=== PATIENT | female | born 1950 | race Caucasian/White ===

== ENCOUNTER 2017-12-18 08:21 | Day surgery (SDC) | payer MEDICARE, OTHER, SELFPAY ==
[2017-11-25 09:01] VITALS: BMI 36.7
[2017-12-18] VITALS (13 sets, daily range): BP systolic 94–140; BP diastolic 55–88; PULSE 60–79; RESP 10–20; TEMP 35.7–36.3; O2SAT 91–97; BMI 36.7
--- NOTE | 2017-12-18 09:11 | SUR.OPER ---
Supine on padded OR bed. Pillow under head, arms secured on padded armboards <90 degree abduction. Safety belt across torso. Non-operative leg secured with tape over blanket over lower leg. Operative leg secured in Eulogio positioner. Foam padded brace at thigh of operative leg.
[2017-12-18] MEDS: VANCOMYCIN 1,000 MG/200 ML FROZ.PIGGY 133.333 MG IV (09:45)
[2017-12-18] MEDS: LACTATED RINGERS 1,000 ML 42 ML IV ×2 (10:14→13:31)
[2017-12-18] MEDS: CEFAZOLIN 2 GM/100 ML FROZ.PIGGY IV ×2 (11:14→17:29)
[2017-12-18] MEDS: POVIDONE-IODINE 15 ML, SODIUM CHLORIDE 0.9% 250 ML TOP (11:58)
[2017-12-18] MEDS: BUPIVACAINE LIPOSOME 266 MG/20 ML VIAL INJ (11:59)
[2017-12-18] MEDS: BUPIVACAINE 0.25% W/ EPI 50 ML VIAL INJ (11:59)
--- NOTE | 2017-12-18 13:18 | DI.RAD.S_ITS ---
PROCEDURE: XR KNEE RT 1TO2V INDICATIONS: RIGHT UNI KNEE TECHNIQUE: 2 view(s) of the knee acquired. COMPARISON: [facility], XR KNEE ARTHRITIC SERIES RT, 08/22/2017, 15:33. FINDINGS: Expected postoperative changes have occurred in the interim related to a medial compartment hemiarthroplasty. A metallic prosthetic components appear to be appropriately seated without periprosthetic fracture evident. Otherwise the overlying bony structures are unremarkable. No fractures are evident. Expected postoperative changes within the overlying soft tissues are present with areas of soft tissue edema, air, and fluid. No unexpected radiopaque foreign bodies are evident. IMPRESSION: Expected post surgical changes related to a medial compartment hemiarthroplasty. Dictated by: Jaspreet Linder M.D. on 12/18/2017 at 13:10 Approved by: Jaspreet Linder M.D. on 12/18/2017 at 13:11
[2017-12-18] MEDS: fentaNYL 100 MCG/2 ML INJ IV ×2 (13:32→13:47)
--- NOTE | 2017-12-18 14:00 | SUR.PHASEI ---
REPORT CALLED TO VIJAYA DUMONT ON ACUTE CARE FLOOR. PT IN STABLE CONDITION, VSS. IV SITE CLEAR. DRSG OBSERVED TO BE C/D/I. PT ABLE TO MOVE OPERATIVE EXTREMITY, WARM TO TOUCH, +PULSE, CAP REFILL WNL, AND DULL SENSTATION RELATED TO SPINAL. PT TOLERATING ORAL INTAKE WITHOUT ANY DIFFICULTLY. PT DENIES ANY NAUSEA AND STATES PAIN IS TOLERABLE /10. TRANSFERED PT TO ACUTE CARE FLOOR. PT ALERT AND TALKING TO RN DURING TRANSPORT. BEDSIDE REPORT GIVEN TO VIJAYA DUMONT. TRANSFERED CARE OF PT TO VIJAYA DUMONT.
--- NOTE | 2017-12-18 14:33 | PC.NURSE ---
Admit Pt arrived from PACU rating pain 4/10 CMS+ Spo2 88-90 on RA, placed on 1L. Pt denies nausea, Percocet given for pain. Pt would like to d/c later today. Iv SL.
[2017-12-18] MEDS: OXYCODONE/ACETAMINOPHEN 5/325 TABLET 2 TAB PO ×2 (14:47→18:11)
--- NOTE | 2017-12-18 16:23 | PM.OP.1 ---
Operative Date/Time/Diagnoses - Date of procedure: 12/18/17 Time of procedure: 11:23 Pre-op diagnosis: right knee medial oa Post-op diagnosis: same Procedure & Clinicians Procedure: right knee medial uni replacement Same procedure as scheduled: Yes Surgeon: Tamara Sharma Contact Center Team Lead: Ginny Wooten Anesthesia Type: General and Spinal Operative Notes Findings: severe medial oa Closure Type: primary Specimen(s): none sent Implants & Drains: ZUK femur C, poly 8, tibia 2 Estimated Blood Loss (mL): 150 Tourniquet time (min): 58 Procedure in detail: The patient was brought to the operating room and underwent the induction of a spinal anesthetic. A time-out was performed antibiotics were given. The patient's right lower extremities prepped draped standard sterile fashion. An incision was made after elevating the tourniquet to 250 mm of mercury. Dissection was carried up the skin the subcutaneous tissues and Gelpi retractors were placed. A medial arthrotomy was performed. The patella was slid but not everted. Portion of the medial osteophytes were carefully removed. A small amount of articular cartilage was rib removed from both the femoral and the tibial surface. There was severe medial compartment arthritis with no significant patellofemoral arthritis. Gelpi retractors were placed. The [employer] tibial alignment guide was placed at the joint line. It was carefully pinned both the tibia and the femur and the slope was checked. Femur was cut in extension the tibia was cut in flexion. Residual medial meniscus was removed. Patient was placed in extension and the gap was checked and was appropriate for size 8 polyethylene. Tibia was sized at a size 2. Posterior capsule was carefully injected with Marcaine and Exparel. Finishing cuts were made on the femur for a size C. tibia was finished. Trial reduction showed excellent range of motion and good stability with a +8 poly. The bone was meticulously cleaned with pulse lavage and the components were carefully cemented into place without difficulty. Free cement was carefully cleared. Final polyethylene was placed after checking posteriorly. There is excellent range of motion and stability. The tourniquet was deflated there was minimal bleeding. The wound was closed with interrupted black braided nylon and barbed stitches. The wound was dressed sterilely. Patient tolerated the procedure well she was transferred to recovery room in satisfactory condition complications none. Postop plan is probable discharge to home today weight-bearing as tolerated. Complications: none Condition: stable Disposition: observation Plan for aftercare: The patient will be maintained on a standard total knee replacement protocol with weight bearing as tolerated. The patient will receive aspirin and sequential compression devices for DVT prophylaxis. The patient will be discharged home when safe for the home environment.
--- NOTE | 2017-12-18 17:04 | PT.IIE ---
Current Diagnoses Unilateral primary osteoarthritis, right knee (12/18/17) Surgery Performed Operation Date: 12/18/17 10:45 Actual Procedures p Unicompartment Knee Arthroplasty, Medial(Right) - Tamara Sharma MD Surgical History (Last Updated 11/25/17 @ 09:39 by Esperanza Foley, RN) History of bilateral tubal ligation (Acute) History of ear surgery (Acute) Hx of appendectomy (Acute) Hx of cholecystectomy (Acute) Hx of thumb surgery (Acute) S/P cervical spinal fusion (Acute) S/p bilateral carpal tunnel release (Acute) Medical History (Last Updated 11/25/17 @ 09:39 by Esperanza Foley RN) Anxiety (Acute) Arachnoid cyst (Acute) Bruises easily (Acute) Bug bites (Acute) COPD (chronic obstructive pulmonary disease) (Acute) CVA (cerebral vascular accident) (Acute) Cataract, left eye (Acute) Diabetes (Acute) Eczema of both hands (Acute) Fibromyalgia (Acute) H/O: hysterectomy (Acute) HTN (hypertension) (Acute) Hyperlipidemia (Acute) Hypothyroidism (Acute) IBS (irritable bowel syndrome) (Acute) Menieres disease (Acute) Migraines (Acute) Nasal polyp (Acute) Numbness and tingling of both feet (Acute) Panic attacks (Acute) RLS (restless legs syndrome) (Acute) Sleep apnea with use of continuous positive airway pressure (CPAP) (Acute) Slipped Gaby fundoplication (Acute) Surgery, elective (Acute) TMJ (dislocation of temporomandibular joint) (Acute) Urinary incontinence (Acute) Physical Therapy Inpatient Evaluation/Re-Eval M1 PT/OT-IP Prior Functional Status Start: 12/18/17 16:55 Freq: NEEDED Status: Active Protocol: Document 12/18/17 16:55 AB (Rec: 12/18/17 17:04 AB [email or web address]) Medical Review Prior Functional Status Medical History Reviewed Yes Mobility and Gait Pt stated that she is independent with all mobilities and ambulation without AD Social History Household Members spouse Living Arrangements Mobile home Number of Floors (Floors) One Floor Number of Stairs To Enter/Railing? 6 platform steps with L rail ascending Home Environment Standard Height Toilet Walk in Shower Built-In Shower Seat Home Equipment Front Wheel Walker Hand Held Shower Grab Bars In Shower Employment Status Retired M2 PT-IP Current Condition Start: 12/18/17 16:55 Freq: NEEDED Status: Active Protocol: Document 12/18/17 16:55 AB (Rec: 12/18/17 17:04 AB [email or web address]) Physical Therapy Current Condition Current Condition Evaluation Date 12/18/17 Treatment Diagnosis s/p R TKA; difficulty in walking Onset Date 12/18/17 Weight Bearing Status Weight Bearing Status Weight Bear as Tolerated M3 PT-IP Subjective Start: 12/18/17 16:55 Freq: NEEDED Status: Active Protocol: Document 12/18/17 16:55 AB (Rec: 12/18/17 17:04 AB [email or web address]) Subjective Physical Therapy Visit Type Type Initial Evaluation Visit Start Time 16:00 Visit Stop Time 16:55 Total Visit Minutes 55 Number of TALENT SOLUTIONS MANAGER Visits 0 Physical Therapy Visit Comments Patient Comments pt agreeable to get up Therapy Pain Assessment Pain When Pain Assessed At Rest Pain Present Pain Present Pain Reported Location Right Knee Intensity 5 Scale Used Numeric (1 - 10) Pain Management Techniques Apply Cold Timing of Activity with Medications M4 PT-IP Mobility and Gait Start: 12/18/17 16:55 Freq: NEEDED Status: Active Protocol: Document 12/18/17 16:55 AB (Rec: 12/18/17 17:04 AB [email or web address]) PT-Bed Mobility Assessment Supine to Sit Supine to Sit Standby Assistance Scooting Scooting to Edge of Bed Standby Assistance PT-Transfer Assessment Sit to and From Stand Sit to and from Stand Contact Guard Assistance Equipment Transfer Assistive Device Gait Belt Front Wheeled Walker Transfers Transfer Destination Toilet Transfer Technique pt ambulated to the toilet using fWW Gait Assessment Gait Gait Assistance Required: Contact Guard Assist Distance (Feet) (feet) 100 Able to Maintain Weight Bearing Status Yes During Gait Assistive Devices Assistive Device Gait Belt Front Wheeled Walker Orthotic/Prosthetic Devices or Brace: No Gait Deviations General Gait Pattern Antalgic Factors Limiting Gait Function Factors Limiting Gait Function Decreased Activity Tolerance Decreased Strength Limited Range of Motion Pain Poor Balance Poor Safety Awareness Comments Gait Comments Pt can be impulsive and requires cues to slow down requiring CGA for safety Stair Climbing Assessment Evaluation Level of Assist On Stairs Contact Guard Assistance Devices Stair Climbing Assistive Devices Front Wheel Walker Technique/Endurance Stair Climbing Direction Ascend and Descend Stair Climbing Technique Step to Step Number of Steps Climbed 1 Query Text: Stair Climbing Set # Repetitions (reps) 4 PT-Balance Assessment Sitting Balance and Reactions Static Sitting Balance Ability Good Dynamic Sitting Balance Ability Good Standing Balance and Reactions Static Standing Balance Ability Fair Dynamic Standing Balance Ability Fair M5 PT-IP Objective Assessments Start: 12/18/17 16:55 Freq: NEEDED Status: Active Protocol: Document 12/18/17 16:55 AB (Rec: 12/18/17 17:04 AB [email or web address]) Orientation Orientation/Cognition Level of Alertness Alert Safety Awareness Decreased Safety Awareness Gross Range of Motion Lower Extremity ROM Assessment Right Impaired Strength Lower Extremity Strength Assessment Left Impaired Knee 4-/5 Sensation Assessment Sensation Sensation Description Numbness Comments Sensation Comments numbness on buttocks M6 PT-IP Treatment Start: 12/18/17 16:55 Freq: NEEDED Status: Active Protocol: Document 12/18/17 16:55 AB (Rec: 12/18/17 17:04 AB [email or web address]) Physical Therapy Treatment Education Education Provided Precautions Weight Bearing Status Post-Op Packet Safety M7 PT-IP Assessment and Plan Start: 12/18/17 16:55 Freq: NEEDED Status: Active Protocol: Document 12/18/17 16:55 AB (Rec: 12/18/17 17:04 AB [email or web address]) PT Summary Assessment and Plan Potential Rehabilitation Potential Good Status of Condition at Evaluation Evolving Summary Impairments Pain ROM Strength Balance Bed Mobility Transfers Gait Activity Tolerance Assessment Summary pt requiring CGA with ambulation due to impulsiveness affecting safety and function. pt plans to go home later today with spouse assisting her at home. Goals Bed Mobility Goal Independent Transfer Goal Independent Gait Goal Independent Gait Distance 150 Other Goals up/down 6 platform steps using FWW Days to Meet Goals 2 Frequency of Treatment Frequency Of Treatment Twice a Day Treatment Plan Physical Therapy Treatment Plan Bed Mobility Training Transfer Training Gait Training Therapeutic Exercise Balance Retraining Post Op Education Discharge Planning Hot or Cold Pack Neuromuscular Re-ed Coordination Retraining Manual Therapy Other Recommendations and Next Treatment ambulation, stair climbing Focus Recommendations To Nursing Amount of Assist Needed 1 Person Assist Discharge Recommendations PT Discharge Recommendations Home with Assistance Outpatient PT Provider Visit Care Team Role Provider Type Alejo Dahl MD Primary Care Provider Non-Staff Specialty: Medical Tamara Sharma MD Admit Provider Physician Attending Provider Specialty: Orthopedic Surgery
== END 2017-12-18 18:16 | disposition home or self-care (01) ==
LOC: AC 13:16 → OR 12-22 14:01
PROVIDERS: PCP Family Medicine; Visit Provider Orthopaedic Surgery
PROC: (CPT 27446; principal; 2017-12-18 10:45)
DX: M17.11 Unilateral primary osteoarthritis, right knee (principal); I10 Essential (primary) hypertension; M79.7 Fibromyalgia; E11.9 Type 2 diabetes mellitus without complications; Z87.891 Personal history of nicotine dependence; Z79.84 Long term (current) use of oral hypoglycemic drugs; E66.01 Morbid (severe) obesity due to excess calories; Z68.36 Body mass index [BMI] 36.0-36.9, adult; E03.9 Hypothyroidism, unspecified; F41.9 Anxiety disorder, unspecified; G47.33 Obstructive sleep apnea (adult) (pediatric); Z86.73 Personal history of transient ischemic attack (TIA), and cerebral infarction without residual deficits
CPT/HCPCS: 27446; 73560; 97162; 97530; C1776; C9290; J0690; J1170; J2250; J2405; J2704; J3010; J3370

== ENCOUNTER 2022-04-19 08:51 | Emergency (ER) | payer MEDICARE, OTHER, SELFPAY ==
[2017-12-18 16:28] VITALS: BMI 36.7
[2022-04-19] VITALS (15 sets, daily range): BP systolic 103–153; BP diastolic 56–83; PULSE 62–86; RESP 17–28; TEMP 37; O2SAT 93–98; BMI 33.8
--- NOTE | 2022-04-19 09:16 | DI.RAD.S_ITS ---
PROCEDURE: XR CHEST 1V INDICATIONS: Chest pain TECHNIQUE: One view of the chest was acquired. COMPARISON: None. FINDINGS: Surgical changes and devices: None. Lungs and pleura: Lungs are clear. No pleural effusions or pneumothorax. Mediastinum: Mediastinal contours appear normal. Heart size is normal. Bones and chest wall: No suspicious bony lesions. Overlying soft tissues appear unremarkable. IMPRESSION: No acute cardiopulmonary process demonstrated radiographically. Dictated by: Obi Hernandez M.D. on 04/19/2022 at 9:36 Approved by: Obi Hernandez M.D. on 04/19/2022 at 9:37
--- NOTE | 2022-04-19 09:22 | ED.CHESTPAIN ---
HPI - Chest Pain General Chief Complaint: Chest Pain Stated Complaint: Chest/left arm pain, hx cardiac issues Time Seen by Provider: 04/19/22 09:07 Source: patient Mode of arrival: Ambulatory Limitations: no limitations History of Present Illness HPI narrative: 71-year-old female. Has a known history of coronary artery disease. Has stents placed but has never had a heart attack. Has a history of COPD. Not diabetic. She is here for evaluation of chest discomfort and back discomfort radiating down her left arm. She states it has been going on for the past several days. Can not specifically state whether not it has been constant but it has been there more often than not. She has been taking aspirin on a daily basis. She did take aspirin this morning. No change in her respiratory status. States the symptoms are not made worse with palpation or movement. Related Data Home Medications Medication Instructions Recorded Confirmed albuterol sulfate 90 mcg/actuation 2 puff inhalation Q4-6H PRN COPD 11/25/17 01/11/22 aerosol inhaler aspirin 81 mg tablet,delayed 162 mg PO DAILY 11/25/17 01/11/22 release bupropion HCl 150 mg tablet,12 hr 150 mg PO BID 11/25/17 01/11/22 sustained-release cyclobenzaprine 10 mg tablet 10 mg PO BEDTIME PRN Back Pain 11/25/17 01/11/22 levothyroxine 88 mcg capsule 88 mcg PO DAILY 11/25/17 01/11/22 lisinopril 5 mg tablet 5 mg PO QPM 11/25/17 01/11/22 loperamide 2 mg tablet 2 mg PO TID PRN Diarrhea 11/25/17 01/11/22 metformin 1,000 mg tablet 1,000 mg PO BID 11/25/17 01/11/22 pramipexole 0.5 mg tablet 0.5 mg PO BEDTIME restless leg 11/25/17 01/11/22 simvastatin 10 mg tablet 10 mg PO BEDTIME 11/25/17 01/11/22 Previous Rx's Medication Instructions Recorded oxycodone 5 mg capsule 10 mg PO Q4-6H PRN pain #30 caps 12/18/17 Allergies Allergy/AdvReac Type Severity Reaction Status Date / Time naproxen [From Aleve] Allergy Severe Hives Verified 04/19/22 09:21 adhesive tape Allergy Mild Rash Verified 04/19/22 09:21 aspirin AdvReac Severe Gastrointestinal Verified 04/19/22 09:21 Upset ibuprofen AdvReac Severe Agitated Verified 04/19/22 09:21 Review of Systems Review of Systems ROS Unobtainable: All systems reviewed & are unremarkable except as noted in HPI and below Patient History Medical History Anxiety Arachnoid cyst Bruises easily Bug bites Cataract, left eye COPD (chronic obstructive pulmonary disease) CVA (cerebral vascular accident) Diabetes Eczema of both hands Fibromyalgia HTN (hypertension) Hyperlipidemia Hypothyroidism IBS (irritable bowel syndrome) Menieres disease Migraines Nasal polyp Numbness and tingling of both feet Panic attacks RLS (restless legs syndrome) Sleep apnea with use of continuous positive airway pressure (CPAP) Slipped Gaby fundoplication Surgery, elective TMJ (dislocation of temporomandibular joint) Urinary incontinence Surgical History (Updated 11/25/17 @ 09:39 by Esperanza Foley RN) H/O: hysterectomy History of bilateral tubal ligation History of ear surgery Hx of appendectomy Hx of cholecystectomy Hx of thumb surgery S/p bilateral carpal tunnel release S/P cervical spinal fusion Social History household members: spouse Smoking Status: Former smoker alcohol intake: current Smoking Status: Former smoker alcohol intake frequency: 0-2 drinks per day Substance Use Type: does not use Exam Initial Vital Signs Initial Vital Signs: Vital Signs Temperature 98.6 F 04/19/22 08:52 Pulse Rate 86 04/19/22 08:52 Respiratory Rate 24 04/19/22 08:52 Blood Pressure 153/70 H 04/19/22 08:52 Pulse Oximetry 96 04/19/22 08:52 Oxygen Delivery Method 04/19/22 08:52 Const General: cooperative and comfortable HENMT Head: normal to inspection and normocephalic Chest Chest: No crepitus and No tenderness Resp Effort & Inspection: normal respiratory effort Auscultation: clear to auscultation bilaterally Cardio Rate: regular rate Rhythm: regular rhythm GI Inspection: normal to inspection Skin General: no rashes or lesions noted Neuro General: patient alert, patient awake, patient oriented x3 and moves all extremities Cognition: normal cognition Speech: speech normal Extrem General: normal to inspection and No edema Psych Appearance: grossly normal and well kempt Scores HEART Score Heart Score history: Slightly Suspicious Heart Score EKG: Normal Heart Score Age: > or = 65 years old Heart Score risk factors: > 3 risk factors or hx of atherosclerotic disease Heart Score troponin: < or = to normal limit Heart Score Total: 4 Course Orders Ordered: ED Orders 04/19/22 09:00 Complete Blood Count AUTO DIFF Stat Comprehensive Metabolic Panel Stat Lipase Stat Magnesium Stat Troponin & CK Cardiac Panel Stat 04/19/22 09:01 EKG-12 Lead Routine 04/19/22 09:16 XR chest 1V Stat 04/19/22 12:00 Troponin I Stat Nitroglycerin (Nitroglycerin 0.4 Mg Sl Tab) 0.4 mg SL [id number] PRN PRN Reason: Chest Pain Last Admin: 04/19/22 10:48 Dose: 0.4 mg Documented By: ZONIA Discontinued Medications Hydrocodone Bitart/Acetaminophen (Hydrocodone/Acet 5/325 Tablet) 1 tab PO NOW ONE Stop: 04/19/22 10:33 Last Admin: 04/19/22 10:48 Dose: 1 tab Documented By: ZONIA Vital Signs Vital signs: Vital Signs - 8 hr 04/19/22 08:52 04/19/22 09:41 04/19/22 10:00 Temperature 98.6 F Pulse Rate 86 86 Respiratory Rate 24 Blood Pressure 153/70 H 139/65 Pulse Oximetry 96 96 Oxygen Delivery Method Room Air 04/19/22 10:00 04/19/22 10:48 04/19/22 10:12 Temperature Pulse Rate 80 79 Respiratory Rate 17 Blood Pressure 151/73 H 139/72 Pulse Oximetry 96 Oxygen Delivery Method Room Air 04/19/22 10:12 04/19/22 10:30 04/19/22 10:31 Temperature Pulse Rate 79 77 Respiratory Rate 23 24 Blood Pressure 151/73 H Pulse Oximetry 97 97 Oxygen Delivery Method 04/19/22 10:31 04/19/22 11:00 04/19/22 11:01 Temperature Pulse Rate 77 78 77 Respiratory Rate 27 H 24 25 H Blood Pressure Pulse Oximetry 98 93 94 Oxygen Delivery Method 04/19/22 11:01 04/19/22 11:30 04/19/22 11:31 Temperature Pulse Rate 67 69 Respiratory Rate 28 H Blood Pressure 103/56 L Pulse Oximetry 96 95 Oxygen Delivery Method Room Air Room Air 04/19/22 11:31 04/19/22 12:00 04/19/22 12:01 Temperature Pulse Rate 66 70 Respiratory Rate 23 Blood Pressure 138/71 Pulse Oximetry 95 Oxygen Delivery Method Room Air 04/19/22 12:01 04/19/22 12:30 04/19/22 12:30 Temperature Pulse Rate 63 Respiratory Rate 20 Blood Pressure 132/80 135/72 Pulse Oximetry 97 Oxygen Delivery Method MDM - Chest Pain Lab Data Attestation: I reviewed the patient's lab results. Result diagrams: 04/19/22 09:00 04/19/22 09:00 Labs: Lab Results 04/19/22 04/19/22 04/19/22 Range/Units 09:00 09:00 12:00 WBC 10.3 (4.5-11.0) X10^3/uL RBC 4.67 (4.0-5.2) X10^6/uL Hgb 16.2 H (12.0-16.0) g/dL Hct 46.6 H (36-46) % MCV 99.6 (80-100) fL MCH 34.7 H (26-34) PG MCHC 34.8 (30-36) % RDW 13.4 (11.6-14.8) % Plt Count 324 (150-400) X10^3/uL Neut % (Auto) 58.7 (50-75) % Lymph % (Auto) 25.7 (25-40) % [place] % (Auto) 11.8 (3-14) % Eos % (Auto) 3.2 (2-4) % Baso % (Auto) 0.6 (0-2) % Neut # (Auto) 6100 (4085-6781) /uL Lymph # (Auto) 2700 (7182-6599) /uL [place] # (Auto) 1200 H (0-900) /uL Eos # (Auto) 300 (0-450) /uL Baso # (Auto) 100 (0-100) /uL Sodium 142 (137-145) mmol/L Potassium 4.2 (3.4-5.1) mmol/L Chloride 107 (98-107) mmol/L Carbon Dioxide 22 (22-32) mmol/L BUN 16 (7-17) mg/dL Creatinine 0.63 (0.52-1.04) mg/dL Estimated GFR > 60 (>60) mL/min BUN/Creatinine Ratio 25.4 H (6-22) Glucose 96 (80-110) mg/dL Calcium 9.8 (8.4-10.2) mg/dL Magnesium 2.0 (1.6-2.3) mg/dL Total Bilirubin 0.4 (0.2-1.3) mg/dL AST 47 H (14-36) IU/L ALT 34 (<35) IU/L Alkaline Phosphatase 86 (38-126) U/L Total Creatine Kinase 97 (30-135) U/L CK-MB (CK-2) TNP CK-MB (CK-2) Rel Index TNP Troponin I < 0.012 < 0.012 (0.01-0.034) ng/mL Total Protein 8.2 (6.3-8.2) g/dL Albumin 4.6 (3.5-5.0) g/dL Globulin 3.6 (1.7-4.1) g/dL Albumin/Globulin Ratio 1.3 (1.0-2.8) Lipase 273 (23-300) U/L Imaging Data Chest x-ray: Radiologist's Impression: [place] [address] XRay Report Signed Patient: Anne-Marie Martinez MR#: [id number] : 1950 Acct:[id number] Age/Sex: 71 / F Date of Service: 04/19/22 Loc: ED Accession Number: [id number] ?? Procedure: XR chest 1V Ordering Provider: Matt Pearson D.O. PROCEDURE:? XR CHEST 1V ? INDICATIONS:? Chest pain ? TECHNIQUE:? One view of the chest was acquired.? ? COMPARISON:? None. ? FINDINGS:? ? Surgical changes and devices:? None.? ? Lungs and pleura:? Lungs are clear.? No pleural effusions or pneumothorax.? ? Mediastinum:? Mediastinal contours appear normal.? Heart size is normal.? ? Bones and chest wall:? No suspicious bony lesions.? Overlying soft tissues appear unremarkable.? ? IMPRESSION:? No acute cardiopulmonary process demonstrated radiographically. ? ? Dictated by: Obi Hernandez M.D. on 04/19/2022 at 9:36 ? ? Approved by: Obi Hernandez M.D. on 04/19/2022 at 9:37 ECG Data Attestation: I personally reviewed and interpreted this ECG as follows: Interpretation: Sinus rhythm Ventricular rate 92 Normal axis Normal QRS Normal QTC No ST T wave changes MDM Narrative Medical decision making narrative: 71-year-old female. Has known coronary artery disease and has had stents placed in the past. Has a heart score of 4. Has had symptoms for the past several days. Has had 2- troponins and normal EKG. I did discuss her risks. I did discuss the workup that she is done thus far that it is reassuring that she is had discomfort for the past couple days in his still having negative troponins. This Hospital does not have capability performing stress testing over the weekend. We discussed admitting her to the hospital here until Friday to have this done but the patient did not want to do that. We discussed trying to transfer her to a facility that has stress testing capability and she did not want to do that as well. Unfortunately I can not schedule an outpatient stress test for her. She will contact her primary doctor today and leave a message in order to have that stress test performed as an outpatient. She was given return precautions. She expressed understanding and agreement. Discharge Plan Departure Patient Disposition: Home Clinical Impression: Atypical chest pain Instructions: DI for Atypical Chest Pain Activity Restrictions/Additional Instructions: After our discussion the option was to discharge you home and have you contact your primary doctor to schedule an outpatient stress test. I recommend that you do that even this afternoon. Continue all of your medications as directed. Return to the emergency department for any new or worsening symptoms. Prescriptions: No Action cyclobenzaprine 10 mg Tablet 10 mg PO BEDTIME PRN (Reason: Back Pain) bupropion HCl 150 mg Tablet Extended Release 12 Hr 150 mg PO BID simvastatin 10 mg Tablet 10 mg PO BEDTIME loperamide 2 mg Tablet 2 mg PO TID PRN (Reason: Diarrhea) aspirin 81 mg Tablet,Delayed Release (Dr/Ec) 162 mg PO DAILY pramipexole 0.5 mg Tablet 0.5 mg PO BEDTIME metformin 1,000 mg Tablet 1,000 mg PO BID lisinopril 5 mg Tablet 5 mg PO QPM albuterol sulfate 90 mcg/actuation Hfa Aerosol Inhaler 2 puff INHALATION Q4-6H PRN (Reason: COPD) levothyroxine 88 mcg Capsule 88 mcg PO DAILY oxycodone 5 mg capsule 10 mg PO Q4-6H PRN (Reason: pain) Qty: 30 0RF Referrals: Alejo Dahl MD [Primary Care Provider] -
[2022-04-19 09:31] LABS: Add Manual Diff / Slide Review NO; Basophils Absolute Auto 100 /uL (0-100); Basophils Percent Auto 0.6 % (0-2); Eosinophils Absolute Auto 300 /uL (0-450); Eosinophils Percent Auto 3.2 % (2-4); Hematocrit 46.6 % (36-46); Hemoglobin 16.2 g/dL (12.0-16.0); Lymphocytes Absolute Auto 2700 /uL (1100-4500); Lymphocytes Percent Auto 25.7 % (25-40); Mean Corpuscular HGB Conc 34.8 % (30-36); Mean Corpuscular Hemoglobin 34.7 PG (26-34); Mean Corpuscular Volume 99.6 fL (80-100); Monocytes Absolute Auto 1200 /uL (0-900); Monocytes Percent Auto 11.8 % (3-14); Neutrophils Absolute Auto 6100 /uL (1500-7000); Neutrophils Percent Auto 58.7 % (50-75); Platelet Count 324 X10^3/uL (150-400); Red Blood Cell Count 4.67 X10^6/uL (4.0-5.2); Red Cell Distribution Width 13.4 % (11.6-14.8); White Blood Cell Count 10.3 X10^3/uL (4.5-11.0)
[2022-04-19 09:49] LABS: Alanine Aminotransferase 34 IU/L (<35); Albumin 4.6 g/dL (3.5-5.0); Albumin Globulin Ratio 1.3 (1.0-2.8); Alkaline Phosphatase 86 U/L (38-126); Aspartate Aminotransferase 47 IU/L (14-36); BUN Creatinine Ratio 25.4 (6-22); Bilirubin Total 0.4 mg/dL (0.2-1.3); Blood Urea Nitrogen 16 mg/dL (7-17); Calcium 9.8 mg/dL (8.4-10.2); Carbon Dioxide 22 mmol/L (22-32); Chloride 107 mmol/L (98-107); Creatine Kinase 97 U/L (30-135); Estimated Glomerular Filt Rate > 60 mL/min (>60); Globulin 3.6 g/dL (1.7-4.1); Glucose 96 mg/dL (80-110); HEMOLYSIS 24 (0-50); Lipase 273 U/L (23-300); Potassium 4.2 mmol/L (3.4-5.1); Sodium 142 mmol/L (137-145); Total Protein 8.2 g/dL (6.3-8.2)
[2022-04-19 10:01] LABS: Troponin I < 0.012 ng/mL (0.01-0.034)
[2022-04-19] MEDS: NITROGLYCERIN 0.4 MG SL TAB SL (10:48)
[2022-04-19] MEDS: HYDROCODONE/ACET 5/325 TABLET 1 TAB PO (10:48)
[2022-04-19 12:31] LABS: Troponin I < 0.012 ng/mL (0.01-0.034)
== END 2022-04-19 13:24 | disposition home or self-care (01) ==
PROVIDERS: Emergency Provider Emergency Medicine; PCP Family Medicine
DX: R07.89 Other chest pain (principal); I25.10 Atherosclerotic heart disease of native coronary artery without angina pectoris; Z95.5 Presence of coronary angioplasty implant and graft; Z87.891 Personal history of nicotine dependence
CPT/HCPCS: 36415; 71045; 80053; 82550; 83690; 83735; 84484; 85025; 93005; 93010; 99284

== ENCOUNTER 2022-04-22 12:51 | Emergency (ER) | payer MEDICARE, OTHER, SELFPAY ==
[2017-12-18 16:28] VITALS: BMI 36.7
[2022-04-22] VITALS (28 sets, daily range): BP systolic 121–175; BP diastolic 62–113; PULSE 65–85; RESP 18–49; TEMP 36.4; O2SAT 92–98; BMI 34.4
--- NOTE | 2022-04-22 13:28 | DI.RAD.S_ITS ---
PROCEDURE: XR CHEST 1V INDICATIONS: chest pain TECHNIQUE: One view of the chest was acquired. COMPARISON: [facility], CR, XR CHEST 1V, 04/19/2022, 9:15. FINDINGS: Surgical changes and devices: Cervical spine fusion hardware. Lungs and pleura: Lungs are clear. Azygos lobe variant anatomy. No pleural effusions or pneumothorax. Mediastinum: Mediastinal contours appear normal. Heart size is normal. Bones and chest wall: No suspicious bony lesions. Overlying soft tissues appear unremarkable. IMPRESSION: No acute cardiopulmonary abnormality. Dictated by: Wai Barriga M.D. on 04/22/2022 at 14:53 Approved by: Wai Barriga M.D. on 04/22/2022 at 14:56
[2022-04-22 13:51] LABS: Add Manual Diff / Slide Review NO; Basophils Absolute Auto 100 /uL (0-100); Basophils Percent Auto 0.7 % (0-2); Eosinophils Absolute Auto 300 /uL (0-450); Hematocrit 49.3 % (36-46); Hemoglobin 16.9 g/dL (12.0-16.0); Lymphocytes Absolute Auto 1700 /uL (1100-4500); Lymphocytes Percent Auto 17.3 % (25-40); Mean Corpuscular HGB Conc 34.3 % (30-36); Mean Corpuscular Hemoglobin 34.4 PG (26-34); Mean Corpuscular Volume 100.2 fL (80-100); Monocytes Absolute Auto 800 /uL (0-900); Monocytes Percent Auto 8.1 % (3-14); Neutrophils Absolute Auto 7000 /uL (1500-7000); Neutrophils Percent Auto 70.9 % (50-75); Platelet Count 329 X10^3/uL (150-400); Red Blood Cell Count 4.92 X10^6/uL (4.0-5.2); Red Cell Distribution Width 12.9 % (11.6-14.8); White Blood Cell Count 9.8 X10^3/uL (4.5-11.0)
[2022-04-22 14:10] LABS: Alanine Aminotransferase 33 IU/L (<35); Albumin 4.7 g/dL (3.5-5.0); Albumin Globulin Ratio 1.2 (1.0-2.8); Alkaline Phosphatase 84 U/L (38-126); Aspartate Aminotransferase 37 IU/L (14-36); BUN Creatinine Ratio 17.4 (6-22); Bilirubin Total 0.8 mg/dL (0.2-1.3); Blood Urea Nitrogen 12 mg/dL (7-17); Calcium 9.6 mg/dL (8.4-10.2); Carbon Dioxide 27 mmol/L (22-32); Chloride 100 mmol/L (98-107); Creatine Kinase 85 U/L (30-135); Estimated Glomerular Filt Rate > 60 mL/min (>60); Globulin 3.9 g/dL (1.7-4.1); Glucose 154 mg/dL (80-110); HEMOLYSIS < 15 (0-50); Lipase 200 U/L (23-300); Magnesium 2.1 mg/dL (1.6-2.3); Potassium 3.9 mmol/L (3.4-5.1); Sodium 139 mmol/L (137-145); Total Protein 8.6 g/dL (6.3-8.2)
[2022-04-22 14:22] LABS: Troponin I < 0.012 ng/mL (0.01-0.034)
--- NOTE | 2022-04-22 15:03 | ED_ITS ---
HPI - Chest Pain General Chief Complaint: Chest Pain Stated Complaint: heart, chest pain here on Friday Time Seen by Provider: 04/22/22 14:56 Source: patient Mode of arrival: Ambulatory Limitations: no limitations History of Present Illness HPI narrative: This is a 71-year-old female with history of coronary artery disease with cardiac stents, COPD, LILI, hypothyroidism, hypertension, dyslipidemia presents for chest pressure radiating to her back on the left side down her shoulder and arm. She states it started last Friday was intermittent but becoming progressively more frequent. She states it is worse when she lies down it is better more when she is upright walking does not seem to make it significantly worse. Patient was seen 2 days ago was recommended have stress testing but could not because it was the weekend return home tried to reach her primary care physician who recommends she comes here. She still having the chest pain is intermittent, she states it feels similar to when she had her last heart attack. She has had a productive cough for several months which was has been whitish clears. No fevers or chills. No nausea or vomiting. No diaphoresis. No swelling in extremities. Chronic baseline shortness of breath with no increased. She does continues tobacco. Three alcoholic drinks 3 times weekly, no illicit. Patient states she is had cardiac stent, cervical fusion, cholecyst ectomy, thumb surgery, hysterectomy and knee surgery. Patient's primary care is Elsi Acevedo out of [facility] in [facility]. Related Data Home Medications Medication Instructions Recorded Confirmed albuterol sulfate 90 mcg/actuation 2 puff inhalation Q4-6H PRN COPD 11/25/17 01/11/22 aerosol inhaler aspirin 81 mg tablet,delayed 162 mg PO DAILY 11/25/17 01/11/22 release bupropion HCl 150 mg tablet,12 hr 150 mg PO BID 11/25/17 01/11/22 sustained-release cyclobenzaprine 10 mg tablet 10 mg PO BEDTIME PRN Back Pain 11/25/17 01/11/22 levothyroxine 88 mcg capsule 88 mcg PO DAILY 11/25/17 01/11/22 lisinopril 5 mg tablet 5 mg PO QPM 11/25/17 01/11/22 loperamide 2 mg tablet 2 mg PO TID PRN Diarrhea 11/25/17 01/11/22 metformin 1,000 mg tablet 1,000 mg PO BID 11/25/17 01/11/22 pramipexole 0.5 mg tablet 0.5 mg PO BEDTIME restless leg 11/25/17 01/11/22 simvastatin 10 mg tablet 10 mg PO BEDTIME 11/25/17 01/11/22 Previous Rx's Medication Instructions Recorded oxycodone 5 mg capsule 10 mg PO Q4-6H PRN pain #30 caps 12/18/17 Allergies Allergy/AdvReac Type Severity Reaction Status Date / Time naproxen [From Aleve] Allergy Severe Hives Verified 04/19/22 09:21 adhesive tape Allergy Mild Rash Verified 04/19/22 09:21 aspirin AdvReac Severe Gastrointestinal Verified 04/19/22 09:21 Upset ibuprofen AdvReac Severe Agitated Verified 04/19/22 09:21 Review of Systems Review of Systems ROS Unobtainable: All systems reviewed & are unremarkable except as noted in HPI and below Patient History Medical History Anxiety Arachnoid cyst Bruises easily Bug bites Cataract, left eye COPD (chronic obstructive pulmonary disease) CVA (cerebral vascular accident) Diabetes Eczema of both hands Fibromyalgia HTN (hypertension) Hyperlipidemia Hypothyroidism IBS (irritable bowel syndrome) Menieres disease Migraines Nasal polyp Numbness and tingling of both feet Panic attacks RLS (restless legs syndrome) Sleep apnea with use of continuous positive airway pressure (CPAP) Slipped Gaby fundoplication Surgery, elective TMJ (dislocation of temporomandibular joint) Urinary incontinence Surgical History H/O: hysterectomy History of bilateral tubal ligation History of ear surgery Hx of appendectomy Hx of cholecystectomy Hx of thumb surgery S/p bilateral carpal tunnel release S/P cervical spinal fusion Social History household members: spouse Smoking Status: Former smoker alcohol intake: current Smoking Status: Former smoker alcohol intake frequency: 0-2 drinks per day Substance Use Type: does not use Exam Narrative Exam Narrative: GENERAL: Alert and oriented x three, female in [id number] distress. No diaphoresis. HEENT: Head normocephalic, atraumatic, EOMI, pupils reactive, face symmetric, moist mucous membranes NECK: Supple, full range of motion CARDIOVASCULAR: Regular rate and rhythm without murmurs, rubs or gallops. No JVD. No swelling bilateral lower extremities. RESPIRATORY: Breath sounds equal bilaterally, no wheezes rales or rhonchi. No tachypnea or accessory muscle use ABDOMEN: Soft, nontender. Normoactive bowel sounds all 4 quadrants. No guarding or rebound, rigidity, no mass : No CVA tenderness EXTREMITIES: Normal range of motion, no clubbing or edema. Neurovascularly intact NEUROLOGICAL: Cranial nerves II through XII grossly intact. Moving all extremities SKIN: Warm, dry, no petechiae, no rashes or lesions. Initial Vital Signs Initial Vital Signs: Vital Signs Temperature 97.6 F 04/22/22 13:28 Pulse Rate 85 04/22/22 13:28 Respiratory Rate 24 04/22/22 13:28 Blood Pressure 134/74 04/22/22 13:28 Pulse Oximetry 96 04/22/22 13:28 Oxygen Delivery Method 04/22/22 13:28 Course Orders Ordered: ED Orders 04/22/22 13:20 Complete Blood Count AUTO DIFF Stat Comprehensive Metabolic Panel Stat Lipase Stat Magnesium Stat Troponin & CK Cardiac Panel Stat 04/22/22 13:28 XR chest 1V Stat EKG-12 Lead Stat 04/22/22 15:45 COVID19 -Nasal RAPID/Pre-Proc Stat D Dimer Stat Trop I [Troponin I] Stat Discontinued Medications Hydrocodone Bitart/Acetaminophen (Hydrocodone/Acet 5/325 Tablet) 1 tab PO NOW ONE Stop: 04/22/22 16:06 Last Admin: 04/22/22 16:20 Dose: 1 tab Documented By: FITO Aspirin (Aspirin 81 Mg Chew Tab) 324 mg PO NOW ONE Stop: 04/22/22 15:22 Last Admin: 04/22/22 15:38 Dose: 243 mg Documented By: FITO Nitroglycerin (Nitroglycerin 0.4 Mg Sl Tab) 0.4 mg SL [id number] PRN PRN Reason: Chest Pain Last Admin: 04/22/22 15:39 Dose: 0.4 mg Documented By: FITO Vital Signs Vital signs: Vital Signs - 8 hr 04/22/22 13:28 04/22/22 15:10 04/22/22 15:14 Temperature 97.6 F Pulse Rate 85 78 Respiratory Rate 24 Blood Pressure 134/74 175/82 H Pulse Oximetry 96 92 Oxygen Delivery Method Room Air 04/22/22 15:14 04/22/22 15:30 04/22/22 15:43 Temperature Pulse Rate 77 75 74 Respiratory Rate 18 24 Blood Pressure Pulse Oximetry 95 96 95 Oxygen Delivery Method Room Air 04/22/22 15:43 04/22/22 15:50 04/22/22 15:50 Temperature Pulse Rate 79 Respiratory Rate 25 H Blood Pressure 146/74 H 133/62 Pulse Oximetry 94 Oxygen Delivery Method 04/22/22 15:55 04/22/22 15:55 04/22/22 16:00 Temperature Pulse Rate 76 Respiratory Rate 25 H Blood Pressure 134/63 144/72 H Pulse Oximetry 94 Oxygen Delivery Method 04/22/22 16:00 04/22/22 16:05 04/22/22 16:05 Temperature Pulse Rate 76 74 Respiratory Rate 24 Blood Pressure 147/72 H Pulse Oximetry 94 95 Oxygen Delivery Method Room Air 04/22/22 16:10 04/22/22 16:10 04/22/22 16:16 Temperature Pulse Rate 73 75 Respiratory Rate 30 H Blood Pressure 135/69 Pulse Oximetry 95 95 Oxygen Delivery Method 04/22/22 16:16 04/22/22 16:21 04/22/22 16:21 Temperature Pulse Rate 68 Respiratory Rate 28 H Blood Pressure 124/67 134/74 Pulse Oximetry 95 Oxygen Delivery Method 04/22/22 16:25 04/22/22 16:25 04/22/22 16:30 Temperature Pulse Rate 74 Respiratory Rate 26 H Blood Pressure 134/78 128/70 Pulse Oximetry 96 Oxygen Delivery Method 04/22/22 16:30 04/22/22 16:35 04/22/22 16:35 Temperature Pulse Rate 65 72 Respiratory Rate 22 29 H Blood Pressure 141/65 H Pulse Oximetry 95 95 Oxygen Delivery Method Room Air 04/22/22 16:41 04/22/22 16:41 04/22/22 16:45 Temperature Pulse Rate 74 Respiratory Rate 30 H Blood Pressure 130/72 133/79 Pulse Oximetry 95 Oxygen Delivery Method 04/22/22 16:45 04/22/22 16:50 04/22/22 16:50 Temperature Pulse Rate 68 72 Respiratory Rate 25 H 49 H Blood Pressure 139/83 Pulse Oximetry 95 96 Oxygen Delivery Method 04/22/22 16:55 04/22/22 16:55 04/22/22 17:00 Temperature Pulse Rate 71 Respiratory Rate 31 H Blood Pressure 135/71 121/67 Pulse Oximetry 96 Oxygen Delivery Method 04/22/22 17:00 04/22/22 17:06 04/22/22 17:06 Temperature Pulse Rate 70 72 Respiratory Rate 26 H Blood Pressure 135/91 H Pulse Oximetry 96 95 Oxygen Delivery Method 04/22/22 17:10 04/22/22 17:10 04/22/22 17:19 Temperature Pulse Rate 77 74 Respiratory Rate 24 Blood Pressure 140/107 H Pulse Oximetry 96 97 Oxygen Delivery Method 04/22/22 17:19 04/22/22 17:21 04/22/22 17:21 Temperature Pulse Rate 69 Respiratory Rate 28 H Blood Pressure 129/113 H 130/102 H Pulse Oximetry 95 Oxygen Delivery Method 04/22/22 17:26 04/22/22 17:26 04/22/22 17:30 Temperature Pulse Rate 78 Respiratory Rate 30 H Blood Pressure 134/89 138/71 Pulse Oximetry 96 Oxygen Delivery Method 04/22/22 17:30 04/22/22 17:36 04/22/22 17:36 Temperature Pulse Rate 68 69 Respiratory Rate 25 H 26 H Blood Pressure 161/94 H Pulse Oximetry 98 98 Oxygen Delivery Method 04/22/22 17:41 04/22/22 17:41 Temperature Pulse Rate 65 Respiratory Rate 29 H Blood Pressure 155/80 H Pulse Oximetry 97 Oxygen Delivery Method MDM - Chest Pain Lab Data Result diagrams: 04/22/22 13:20 04/22/22 13:20 Labs: Lab Results 04/22/22 04/22/22 04/22/22 Range/Units 13:20 13:20 15:45 WBC 9.8 (4.5-11.0) X10^3/uL RBC 4.92 (4.0-5.2) X10^6/uL Hgb 16.9 H (12.0-16.0) g/dL Hct 49.3 H (36-46) % MCV 100.2 H (80-100) fL MCH 34.4 H (26-34) PG MCHC 34.3 (30-36) % RDW 12.9 (11.6-14.8) % Plt Count 329 (150-400) X10^3/uL Neut % (Auto) 70.9 (50-75) % Lymph % (Auto) 17.3 L (25-40) % [place] % (Auto) 8.1 (3-14) % Eos % (Auto) 3.0 (2-4) % Baso % (Auto) 0.7 (0-2) % Neut # (Auto) 7000 (2793-0226) /uL Lymph # (Auto) 1700 (5084-8101) /uL [place] # (Auto) 800 (0-900) /uL Eos # (Auto) 300 (0-450) /uL Baso # (Auto) 100 (0-100) /uL D-Dimer 493 (<500) ng/ml Sodium 139 (137-145) mmol/L Potassium 3.9 (3.4-5.1) mmol/L Chloride 100 (98-107) mmol/L Carbon Dioxide 27 (22-32) mmol/L BUN 12 (7-17) mg/dL Creatinine 0.69 (0.52-1.04) mg/dL Estimated GFR > 60 (>60) mL/min BUN/Creatinine Ratio 17.4 (6-22) Glucose 154 H (80-110) mg/dL Calcium 9.6 (8.4-10.2) mg/dL Magnesium 2.1 (1.6-2.3) mg/dL Total Bilirubin 0.8 (0.2-1.3) mg/dL AST 37 H (14-36) IU/L ALT 33 (<35) IU/L Alkaline Phosphatase 84 (38-126) U/L Total Creatine Kinase 85 (30-135) U/L CK-MB (CK-2) TNP CK-MB (CK-2) Rel Index TNP Troponin I < 0.012 (0.01-0.034) ng/mL Total Protein 8.6 H (6.3-8.2) g/dL Albumin 4.7 (3.5-5.0) g/dL Globulin 3.9 (1.7-4.1) g/dL Albumin/Globulin Ratio 1.2 (1.0-2.8) Lipase 200 (23-300) U/L SARS-CoV-2 (PCR) (Negative) 04/22/22 04/22/22 Range/Units 15:45 15:45 WBC (4.5-11.0) X10^3/uL RBC (4.0-5.2) X10^6/uL Hgb (12.0-16.0) g/dL Hct (36-46) % MCV (80-100) fL MCH (26-34) PG MCHC (30-36) % RDW (11.6-14.8) % Plt Count (150-400) X10^3/uL Neut % (Auto) (50-75) % Lymph % (Auto) (25-40) % [place] % (Auto) (3-14) % Eos % (Auto) (2-4) % Baso % (Auto) (0-2) % Neut # (Auto) (4957-4453) /uL Lymph # (Auto) (8415-9362) /uL [place] # (Auto) (0-900) /uL Eos # (Auto) (0-450) /uL Baso # (Auto) (0-100) /uL D-Dimer (<500) ng/ml Sodium (137-145) mmol/L Potassium (3.4-5.1) mmol/L Chloride (98-107) mmol/L Carbon Dioxide (22-32) mmol/L BUN (7-17) mg/dL Creatinine (0.52-1.04) mg/dL Estimated GFR (>60) mL/min BUN/Creatinine Ratio (6-22) Glucose (80-110) mg/dL Calcium (8.4-10.2) mg/dL Magnesium (1.6-2.3) mg/dL Total Bilirubin (0.2-1.3) mg/dL AST (14-36) IU/L ALT (<35) IU/L Alkaline Phosphatase (38-126) U/L Total Creatine Kinase (30-135) U/L CK-MB (CK-2) CK-MB (CK-2) Rel Index Troponin I < 0.012 (0.01-0.034) ng/mL Total Protein (6.3-8.2) g/dL Albumin (3.5-5.0) g/dL Globulin (1.7-4.1) g/dL Albumin/Globulin Ratio (1.0-2.8) Lipase (23-300) U/L SARS-CoV-2 (PCR) Negative (Negative) Imaging Data Chest x-ray: Radiologist's Impression: Close Chest X-Ray (Signed) Wai Barriga - 04/22/22 Chest X-Ray (Signed) Obi Hernandez - 04/19/22 Knee X-Ray (Signed) [email or web address] - 12/18/17 DI Result 10/14/17 Outside EKG 08/28/17 Launch?Image [address] [address] XRay Report Signed Patient: Anne-Marie Martinez MR#: [id number] : 1950 Acct:[id number] Age/Sex: 71 / F Date of Service: 04/22/22 Loc: ED Accession Number: [id number] ?? Procedure: XR chest 1V Ordering Provider: Leatha Hope D.O. PROCEDURE:? XR CHEST 1V ? INDICATIONS:? chest pain ? TECHNIQUE:? One view of the chest was acquired.? ? COMPARISON:? [facility], , XR CHEST 1V, 04/19/2022, 9:15. ? FINDINGS:? ? Surgical changes and devices:? Cervical spine fusion hardware.? ? Lungs and pleura:? Lungs are clear.? Azygos lobe variant anatomy.? No pleural effusions or pneumothorax.? ? Mediastinum:? Mediastinal contours appear normal.? Heart size is normal.? ? Bones and chest wall:? No suspicious bony lesions.? Overlying soft tissues appear unremarkable.? ? IMPRESSION:? No acute cardiopulmonary abnormality. ? ? Dictated by: Wai Barriga M.D. on 04/22/2022 at 14:53 ? ? Approved by: Wai Barriga M.D. on 04/22/2022 at 14:56?? ECG Data Attestation: I personally reviewed and interpreted this ECG as follows: Prior ECG tracings: available for review Interpretation: Sinus rhythm rate of 77 NV 128 QRS of [address] wave change. Patient has prior from 04/19/2022. [facility] Narrative Medical decision making narrative: This is a 71-year-old female with left-sided chest pain radiating towards her back that has been on and off since Friday consistent with her past chest pain which she had a heart attack in the past and she states was sensitive to nitro o n her visit Friday. Initial workup is negative repeat 2 hour troponin and EKG show acute change. Patient does note that she is had some pain radiating towards her back. She is not hypoxic but D-dimer was obtained it is negative. Patient does not have any signs chest x-ray such as pneumonia or infectious change. Patient does not wish to stay I did discuss I would like to keep her for observation stress testing which would likely happen 1st thing tomorrow. Patient is really reluctant to do so she was encouraged to return at any time. She is also encouraged to continue her aspirin and her other home medications. She had minimal improvement with nitro, she did have 1 [place] which she did feel was particularly helpful either. Discharge Plan Departure Patient Disposition: Home Clinical Impression: Atypical chest pain Instructions: DI for Atypical Chest Pain Activity Restrictions/Additional Instructions: Follow-up with your physician to have stress testing. It is recommended that you have a stress test I would like to keep you for observation but understand that you do not wish to stay today. Continue home medications as prescribed, please continue taking an aspirin daily Please return for new or worsening symptoms increasing chest pain, shortness of breath, passing out, persistent vomiting, sweatiness or other new or concerning symptoms. Prescriptions: No Action cyclobenzaprine 10 mg Tablet 10 mg PO BEDTIME PRN (Reason: Back Pain) bupropion HCl 150 mg Tablet Extended Release 12 Hr 150 mg PO BID simvastatin 10 mg Tablet 10 mg PO BEDTIME loperamide 2 mg Tablet 2 mg PO TID PRN (Reason: Diarrhea) aspirin 81 mg Tablet,Delayed Release (Dr/Ec) 162 mg PO DAILY pramipexole 0.5 mg Tablet 0.5 mg PO BEDTIME metformin 1,000 mg Tablet 1,000 mg PO BID lisinopril 5 mg Tablet 5 mg PO QPM albuterol sulfate 90 mcg/actuation Hfa Aerosol Inhaler 2 puff INHALATION Q4-6H PRN (Reason: COPD) levothyroxine 88 mcg Capsule 88 mcg PO DAILY oxycodone 5 mg capsule 10 mg PO Q4-6H PRN (Reason: pain) Qty: 30 0RF Referrals: Elsi Acevedo MD [Primary Care Provider] - Visit Report Forms: Patient Portal/API
[2022-04-22] MEDS: ASPIRIN 81 MG CHEW TAB 324 MG PO (15:38)
[2022-04-22] MEDS: NITROGLYCERIN 0.4 MG SL TAB SL (15:39)
[2022-04-22] MEDS: HYDROCODONE/ACET 5/325 TABLET 1 TAB PO (16:20)
[2022-04-22 16:21] LABS: COVID19 -Nasal RAPID Negative (Negative)
[2022-04-22 16:23] LABS: D Dimer 493 ng/ml (<500)
[2022-04-22 16:34] LABS: Troponin I < 0.012 ng/mL (0.01-0.034)
== END 2022-04-22 17:56 | disposition home or self-care (01) ==
PROVIDERS: Emergency Provider Emergency Medicine; PCP Internal Medicine
DX: R07.89 Other chest pain (principal); Z20.822 Contact with and (suspected) exposure to COVID-19
CPT/HCPCS: 36415; 71045; 80053; 82550; 83690; 83735; 84484; 85025; 85379; 87635; 93005; 93010; 99284; C9803